=== PATIENT | female | born 1990 ===

== ENCOUNTER 2021-07-03 10:13 | Day surgery (SDC) | payer OTHER | END 2021-07-03 16:30 | disposition home or self-care (01) | LOC: CIR.AMB 10:13 | PROVIDERS: ATTEND Obstetrics & Gynecology | DX: O02.1 Missed abortion (principal); Z20.822 Contact with and (suspected) exposure to COVID-19 ==

== ENCOUNTER 2023-01-07 14:17 | Outpatient (CLI) | payer OTHER | END 2023-01-07 15:42 | disposition home or self-care (01) | LOC: NST 14:17 | PROVIDERS: ATTEND Obstetrics & Gynecology Maternal & Fetal Medicine | DX: Z34.83 Encounter for supervision of other normal pregnancy, third trimester (principal) ==

== ENCOUNTER 2023-01-27 13:45 | Inpatient (IN) | payer OTHER ==
[~2023-01-27] VITALS: Ht 167.6 cm; Wt 108.9 kg
[2023-02-11] MEDS ORDERED: PRENATAL TABLE1 EAC1 PO (06:09)
[2023-02-11] MEDS ORDERED: CALCIUM500 M1 PO (06:10)
[2023-02-11] MEDS ORDERED: PROBIOTIC1 EACH PO (06:10)
[2023-02-13] MEDS ORDERED: RHOGAM ULTR1500 UNIT IM (07:27)
== END 2023-02-14 12:50 | disposition home or self-care (01) | DRG 788 ==
LOC: OB/GYN 02-11 05:35 → LDR 02-11 05:35 → OB/GYN 02-11 14:51
PROVIDERS: ADMIT Obstetrics & Gynecology; ATTEND Obstetrics & Gynecology
PROC: 4A1HXCZ Monitoring of Products of Conception, Cardiac Rate, External Approach (ICD-10-PCS; 2023-02-11)
PROC: 10D00Z1 Extraction of Products of Conception, Low, Open Approach (ICD-10-PCS; principal; 2023-02-11 21:45)
DX: O33.8 Maternal care for disproportion of other origin (principal); O36.8130 Decreased fetal movements, third trimester, not applicable or unspecified; Z3A.39 39 weeks gestation of pregnancy; Z37.0 Single live birth; Z20.822 Contact with and (suspected) exposure to COVID-19